=== PATIENT | female | born 1990 | race American Indian/Alaskan Native ===

== ENCOUNTER 2019-12-01 21:04 | Emergency (ER) | payer OTHER ==
[2019-12-01 21:35] LABS: Basophils % (Auto) 0.6 % (0.0-1.8); Eosinophils # (Auto) 0.1 K/mm3 (0.0-0.4); Eosinophils % (Auto) 0.7 % (0.0-4.3); Lymphocytes % (Auto) 24.9 % (13.4-35.0); Monocytes # (Auto) 0.7 K/mm3 (0.0-0.8); Monocytes % (Auto) 8.9 % (0.0-7.3)
[2019-12-01 21:38] LABS: Hematocrit 36.7 % (30.3-42.9); Mean Corpuscular HGB Conc 33 % (30-34); Mean Corpuscular Volume 79 fl (79-97); Platelet Count 224 K/mm3 (140-440); Red Blood Count 4.63 M/mm3 (3.65-5.03); Red Cell Distribution Width 14.7 % (13.2-15.2)
[2019-12-01 21:58] LABS: Alanine Aminotransferase 15 units/L (7-56); Albumin 4.6 g/dL (3.9-5); BUN/Creatinine Ratio 15; Blood Urea Nitrogen 12 mg/dL (7-17); Calcium 9.5 mg/dL (8.4-10.2); Hemolysis Index 21
[2019-12-01 22:10] LABS: Bacteria,Urine 2+ /HPF (Negative); Bilirubin,Urine NEG (Negative); Blood,Urine NEG (Negative); Color,Urine Yellow (Yellow); Mucus,Urine FEW /HPF; Protein,Urine <15 mg/dL mg/dL (Negative)
[2019-12-01 22:23] LABS: HCG Qualitative,Urine Positive (Negative)
--- NOTE | 2019-12-01 22:31 | Emergency Department Report ---
ED Abdominal Pain HPI - General Chief Complaint: Abdominal Pain Stated Complaint: STOMACH CRAMPS PREG Time Seen by Provider: 12/01/19 22:18 Source: patient Mode of arrival: Ambulatory Limitations: No Limitations - History of Present Illness Initial Comments: Ms Bueno is s 29 y/o aaf who presents for abd cramping bilat lower abd x 1 month pt states pos teast noted at home. She denies n/v no fever or chills. no vaginal bleed no abdnormal vaginal discharge, no hematuria , frequenc cy or urgency. pt is toleratin p[o intake with out symptoms MD Complaint: abdominal pain (cramping ) Onset/Timin -: week(s) Location: LUQ, RUQ Radiation: none Migration to: no migration, LLQ Severity: moderate Severity scale (0 -10): 4 Quality: cramping, aching Consistency: intermittent Improves With: nothing, other (check out all thi ability to use ) Worsens With: nothing Associated Symptoms: denies: vomiting, fever - Related Data LMP Date: 10/15/19 LMP (females 10-50): 3 weeks Previous Rx's Medication Instructions Recorded Last Taken Type Acetaminophen [Mapap] 650 mg PO Q6H #30 tablet 12/02/19 Unknown Rx cephALEXin [Keflex] 500 mg PO BID 7 Days #14 cap 12/02/19 Unknown Rx Allergies Allergy/AdvReac Type Severity Reaction Status Date / Time Penicillins Allergy Swelling Verified 12/01/19 21:06 ED Review of Systems ROS: Stated complaint: STOMACH CRAMPS PREG Other details as noted in HPI Constitutional: denies: chills, fever Eyes: denies: eye pain, eye discharge, vision change ENT: denies: ear pain, throat pain Respiratory: denies: cough, shortness of breath, wheezing Cardiovascular: denies: chest pain, palpitations Endocrine: no symptoms reported Gastrointestinal: abdominal pain, nausea. denies: vomiting, diarrhea, melena Genitourinary: denies: urgency, dysuria, frequency, hematuria, discharge Musculoskeletal: denies: back pain, joint swelling, arthralgia Skin: denies: rash, lesions Neurological: denies: headache, weakness, paresthesias Psychiatric: denies: anxiety, depression Hematological/Lymphatic: denies: easy bleeding, easy bruising ED Past Medical Hx - Past Medical History Previous Medical History?: No - Surgical History Past Surgical History?: No - Social History Smoking Status: Never Smoker Substance Use Type: None - Medications Home Medications: Home Medications Medication Instructions Recorded Confirmed Last Taken Type Acetaminophen [Mapap] 650 mg PO Q6H #30 tablet 12/02/19 Unknown Rx cephALEXin [Keflex] 500 mg PO BID 7 Days #14 cap 12/02/19 Unknown Rx ED Physical Exam - General Limitations: No Limitations General appearance: alert, in no apparent distress - Head Head exam: Present: atraumatic, normocephalic - Eye Eye exam: Present: normal appearance, PERRL, EOMI Pupils: Present: normal accommodation - ENT ENT exam: Present: normal exam, normal orophraynx, mucous membranes moist, normal external ear exam. Absent: TM's normal bilaterally - Neck Neck exam: Present: normal inspection, full ROM. Absent: tenderness, meningismus, lymphadenopathy, thyromegaly - Respiratory Respiratory exam: Present: normal lung sounds bilaterally. Absent: respiratory distress, wheezes, stridor, chest wall tenderness - Cardiovascular Cardiovascular Exam: Present: regular rate, normal rhythm, normal heart sounds. Absent: systolic murmur, diastolic murmur, rubs, gallop - GI/Abdominal GI/Abdominal exam: Present: soft, normal bowel sounds. Absent: distended, tenderness, guarding, rebound, rigid, bruit, hernia - Rectal Rectal exam: Present: deferred - Extremities Exam Extremities exam: Present: normal inspection, full ROM, tenderness, normal capillary refill. Absent: pedal edema, joint swelling, calf tenderness - Back Exam Back exam: Present: normal inspection, full ROM. Absent: tenderness, CVA tenderness (R), CVA tenderness (L), vertebral tenderness - Neurological Exam Neurological exam: Present: alert, oriented X3, CN II-XII intact, normal gait - Psychiatric Psychiatric exam: Present: normal affect. Absent: normal mood, depressed - Skin Skin exam: Present: warm, dry, intact, normal color. Absent: rash ED Course Vital Signs 12/01/19 12/02/19 21:08 01:10 Temperature 98.6 F 98.0 F Pulse Rate 85 76 Respiratory 20 16 Rate Blood Pressure 123/82 Blood Pressure 119/77 [Right] O2 Sat by Pulse 99 99 Oximetry ED Medical Decision Making - Lab Data Result diagrams: 12/01/19 21:20 12/01/19 21:20 Labs 12/01/19 12/01/19 12/01/19 21:20 21:20 21:51 WBC 8.2 RBC 4.63 Hgb 12.0 Hct 36.7 MCV 79 MCH 26 L MCHC 33 RDW 14.7 Plt Count 224 Lymph % (Auto) 24.9 [place] % (Auto) 8.9 H Eos % (Auto) 0.7 Baso % (Auto) 0.6 Lymph # 2.0 [place] # 0.7 Eos # 0.1 Baso # 0.0 Seg Neutrophils % 64.9 Seg Neutrophils # 5.3 Sodium 136 L Potassium 3.9 Chloride 100.6 Carbon Dioxide 24 Anion Gap 15 BUN 12 Creatinine 0.8 Estimated GFR > 60 BUN/Creatinine Ratio 15 Glucose 91 Calcium 9.5 Total Bilirubin 0.60 AST 16 ALT 15 Alkaline Phosphatase 48 Total Protein 6.9 Albumin 4.6 Albumin/Globulin Ratio 2.0 HCG, Quant Urine Color Yellow Urine Turbidity Cloudy Urine pH 6.0 Ur Specific [place] 1.021 Urine Protein <15 mg/dl Urine Glucose (UA) Neg Urine Ketones Neg Urine Blood Neg Urine Nitrite Neg Urine Bilirubin Neg Urine Urobilinogen 4.0 Ur Leukocyte Esterase Lg Urine WBC (Auto) 11.0 H Urine RBC (Auto) 7.0 U Epithel Cells (Auto) 38.0 H Urine Bacteria (Auto) 2+ Urine Mucus Few Urine HCG, Qual Positive A 12/01/19 22:46 WBC RBC Hgb Hct MCV MCH MCHC RDW Plt Count Lymph % (Auto) [place] % (Auto) Eos % (Auto) Baso % (Auto) Lymph # [place] # Eos # Baso # Seg Neutrophils % Seg Neutrophils # Sodium Potassium Chloride Carbon Dioxide Anion Gap BUN Creatinine Estimated GFR BUN/Creatinine Ratio Glucose Calcium Total Bilirubin AST ALT Alkaline Phosphatase Total Protein Albumin Albumin/Globulin Ratio HCG, Quant 51525 H Urine Color Urine Turbidity Urine pH Ur Specific [place] Urine Protein Urine Glucose (UA) Urine Ketones Urine Blood Urine Nitrite Urine Bilirubin Urine Urobilinogen Ur Leukocyte Esterase Urine WBC (Auto) Urine RBC (Auto) U Epithel Cells (Auto) Urine Bacteria (Auto) Urine Mucus Urine HCG, Qual - Radiology Data Radiology results: report reviewed, image reviewed Findings [facility] [address] [place] [address] Ultrasound Report Signed Patient: JOSE M BUENO MR#: [id number] : 1990 Acct:[id number] Age/Sex: 29 / F ADM Date: 12/01/19 Loc: ED Attending Dr: Ordering Physician: LOYDA MORE NP Date of Service: 12/02/19 Procedure(s): US OB <= 14 weeks fetus Accession Number(s): [id number] cc: LOYDA MORE NP ULTRASOUND OBSTETRIC Indication: , pelvic pain Findings: There is a single, living intrauterine . [place]-rump length = 1.12 cm = 7 weeks, 2 day(s). heart rate is 150 beats per minute. The right ovary measures 4.2 cm and the left ovary measures 4.3 cm. There is a 1.3 cm cyst on the right and a 2.9 cm cyst in the left. There is minimal free fluid in the cul-de-sac. There is a small subchorionic bleed. Impression: Single, living intrauterine with estimated sonographic age of 7 weeks, 2 day(s). Signer Name: Rafael Coulter MD Signed: 12/02/2019 2:16 AM Workstation Name: [id number] Transcribed By: SS Dictated By: Rafael Coulter MD Electronically Authenticated By: Rafael Coulter MD Signed Date/Time: 12/02/19215 DD/ 2 TD/TT: - Medical Decision Making Ultrasound OB single IUP 7 weeks and 2 days heart rate is 150 bpm UA noted for leukocytes and WBCs plan treat for UTI follow-up with [facility]CHOLOG[facility] MANAGER in 2 days return to ED should symptoms worsen patient verbalizes agreement and understanding with discharge plan patient DC'd home in stable condition at this time Critical care attestation.: If time is entered above; I have spent that time in minutes in the direct care of this critically ill patient, excluding procedure time. ED Disposition Clinical Impression: Urinary tract infection during Qualifiers: Trimester: first trimester Qualified Code(s): O23.41 - Unspecified infection of urinary tract in , first trimester Qualifiers: Weeks of gestation: less than 8 weeks Qualified Code(s): Z3A.01 - Less than 8 weeks gestation of Disposition: DC-01 TO HOME OR SELFCARE Is pt being admited?: No Does the pt Need Aspirin: No Condition: Stable Instructions: Abdominal Pain (ED), Urinary Tract Infection in Women (ED), (ED) Additional Instructions: pos 7 weeks and 2 days Prescriptions: cephALEXin [Keflex] 500 mg PO BID 7 Days #14 cap Acetaminophen [Mapap] 650 mg PO Q6H #30 tablet Referrals: ROXY BROWN MD [Staff Physician] - 3-5 Days Forms: Work/School Release Form(ED) Time of Disposition: 02:27
[2019-12-02 01:11] VITALS: BP 119/77
--- NOTE | 2019-12-02 02:20 | Ultrasound Report ---
ULTRASOUND OBSTETRIC Indication: , pelvic pain Findings: There is a single, living intrauterine . [place]-rump length = 1.12 cm = 7 weeks, 2 day(s). heart rate is 150 beats per minute. The right ovary measures 4.2 cm and the left ovary measures 4.3 cm. There is a 1.3 cm cyst on the rig ht and a 2.9 cm cyst in the left. There is minimal free fluid in the cul-de-sac. There is a small subchorionic bleed. Impression: Single, living intrauterine with estimated sonographic age of 7 weeks, 2 day(s). Signer Name: Rafael Coulter MD Signed: 12/02/2019 2:16 AM Workstation Name: [id number]
== END 2019-12-02 02:34 | disposition home or self-care (01) ==
LOC: ED 21:04
DX: O23.41 Unspecified infection of urinary tract in pregnancy, first trimester (principal); Z3A.01 Less than 8 weeks gestation of pregnancy; Z88.0 Allergy status to penicillin
CPT/HCPCS: 36415; 76801; 80053; 81001; 81025; 84702; 85025; 86900; 86901; 87076; 87086; 87186

== ENCOUNTER 2020-07-21 10:17 | Emergency (ER) | payer OTHER ==
[2020-07-21 10:30] VITALS: BP 158/114
[2020-07-21] MEDS ORDERED: MAGNESIUM SULFATE 2 GM/50 ML BAG IV ONE (10:47)
[2020-07-21] MEDS ORDERED: MORPHINE 2 MG/1 ML INJ IV ONE (10:47)
[2020-07-21] MEDS ORDERED: ONDANSETRON 4 MG/2 ML INJ IV ONE (10:47)
--- NOTE | 2020-07-21 11:12 | Emergency Department Report ---
ED General Adult HPI - General Chief complaint: Chest Pain Stated complaint: BILL/POST BABY Time Seen by Provider: 07/21/20 10:28 Source: patient Mode of arrival: Ambulatory Limitations: No Limitations - History of Present Illness Initial comments: This is a 29-year-old female who complains of nonradiating chest tightness. She states that she gave on 16 July. She had her baby at [facility]. She arrives at this facility by ambulance. She was found to have significant hypertension. She states that she has no history of hypertension in nor preeclampsia nor problems with her blood sugar or kidneys. The patient is poorly cooperative with counseling and is refusing medical intervention by nursing staff. I did agency legal counsel her as to the presumptive diagnosis of preeclampsia. She is significantly hypertensive. I told her that this requires hospitalization and treatment with intravenous medication. Despite explaining to her the risk of medical complications to include , she declined blood work form phlebotomy. She is currently refusing further care. Patient was found to be talking on her cell phone and coherent. She has ample medical capacity to make decisions despite this being a very bad and dangerous refusal of care. Patient states that she had a negative Covid test last week. -: hour(s) Location: chest Radiation: non-radiation Quality: other (Tightness) Consistency: constant Improves with: none Worsens with: none - Related Data Previous Rx's Medication Instructions Recorded Last Taken Type Acetaminophen [Mapap] 650 mg PO Q6H #30 tablet 12/02/19 Unknown Rx cephALEXin [Keflex] 500 mg PO BID 7 Days #14 cap 12/02/19 Unknown Rx Allergies Allergy/AdvReac Type Severity Reaction Status Date / Time Penicillins Allergy Swelling Verified 12/01/19 21:06 ED Review of Systems ROS: Stated complaint: BILL/POST BABY Other details as noted in HPI Constitutional: denies: chills, fever Eyes: denies: eye pain, vision change ENT: denies: ear pain, throat pain Respiratory: shortness of breath. denies: cough, wheezing Cardiovascular: chest pain. denies: palpitations Endocrine: no symptoms reported Gastrointestinal: denies: abdominal pain, nausea, vomiting Genitourinary: denies: urgency, dysuria Musculoskeletal: other (States hurting all over) Skin: denies: rash, lesions Neurological: denies: headache, weakness, paresthesias Psychiatric: denies: anxiety, depression Hematological/Lymphatic: denies: easy bleeding, easy bruising ED Past Medical Hx - Past Medical History Previous Medical History?: Yes Additional medical history: Recent - Surgical History Past Surgical History?: No - Social History Smoking Status: Never Smoker - Medications Home Medications: Home Medications Medication Instructions Recorded Confirmed Last Taken Type Acetaminophen [Mapap] 650 mg PO Q6H #30 tablet 12/02/19 Unknown Rx cephALEXin [Keflex] 500 mg PO BID 7 Days #14 cap 12/02/19 Unknown Rx ED Physical Exam - General Limitations: No Limitations General appearance: alert, in no apparent distress - Head Head exam: Present: atraumatic, normocephalic - Eye Eye exam: Present: normal appearance. Absent: scleral icterus - ENT ENT exam: Present: mucous membranes moist - Neck Neck exam: Present: normal inspection - Respiratory Respiratory exam: Present: normal lung sounds bilaterally. Absent: respiratory distress - Cardiovascular Cardiovascular Exam: Present: regular rate, normal rhythm. Absent: systolic murmur, diastolic murmur, rubs, gallop - GI/Abdominal GI/Abdominal exam: Present: soft, normal bowel sounds. Absent: distended, tenderness, guarding, rebound - Extremities Exam Extremities exam: Present: normal inspection - Back Exam Back exam: Present: normal inspection - Neurological Exam Neurological exam: Present: alert, oriented X3, CN II-XII intact. Absent: motor sensory deficit - Psychiatric Psychiatric exam: Present: normal affect, normal mood - Skin Skin exam: Present: warm, dry, intact, normal color. Absent: rash ED Course Vital Signs 07/21/20 10:27 Temperature 98.0 F Pulse Rate 72 Respiratory 20 Rate Blood Pressure 158/114 O2 Sat by Pulse 97 Oximetry - Reevaluation(s) Reevaluation #1: Patient was requested to sign out AMA after further nursing counseling. Apparently, this was unsuccessful and she left. 07/21/20 11:14 Critical care attestation.: If time is entered above; I have spent that time in minutes in the direct care of this critically ill patient, excluding procedure time. ED Disposition Clinical Impression: Pre-eclampsia, Disposition: DC-07 LEFT AGAINST MED ADVICE Is pt being admited?: No Does the pt Need Aspirin: No Condition: Stable Instructions: Hypertension (ED) Referrals: PRIMARY CARE, [Primary Care Provider] - 3-5 Days Time of Disposition: 11:00
--- NOTE | 2020-07-21 11:14 | XRay Report ---
CHEST 2 VIEWS INDICATION: chest pain, SOB. COMPARISON: None. FINDINGS: Support devices: None. Heart: Within normal limits. Lungs/Pleura: Patchy opacity at the mid/lower zones. No significant pleural effusion. IMPRESSION: Bilateral pneumonia. Signer Name: Jagdish Pfeiffer MD Signed: 07/21/2020 11:10 AM Workstation Name: [id number]
== END 2020-07-21 11:09 | disposition left against medical advice (07) ==
LOC: ED 10:17
DX: O14.95 Unspecified pre-eclampsia, complicating the puerperium (principal); Z79.899 Other long term (current) drug therapy; Z88.0 Allergy status to penicillin
CPT/HCPCS: 71046; 93005